=== PATIENT | male | born 1990 | race Hispanic/Latino ===

== ENCOUNTER 2024-05-26 17:06 | Emergency (ER) | payer BC ==
[2024-05-26] VITALS (13 sets, daily range): BP systolic 116–141; BP diastolic 73–111
[~2024-05-26] VITALS: Ht 177.8 cm; Wt 110.0 kg
[2024-05-26 17:43] LABS: BASO% 0.7 % (0-3); HEMATOCRIT 40.9 % (39.0-50.0); HEMOGLOBIN 13.6 g/dl (14.0-18.0); LYMPH% 27.4 % (15-41); MEAN CELL VOLUME 91.7 fL CALC (80.0-100.0); MEAN CORPUSCULAR HGB 30.5 pG CALC (26.0-32.0); MEAN CORPUSCULAR HGB CONC 33.3 g/dL CAL (32.0-36.0); NEUT# 4.34 thou/uL (1.82-7.42); NEUT% 58.9 % (42-76); RED BLOOD COUNT 4.46 mill/uL (4.70-6.10); RED CELL DISTRI WIDTH 11.7 % (11.5-15.5)
[2024-05-26 17:50] LABS: ALBUMIN 4.6 g/dL (3.2-5.0); ALKALINE PHOSPHATASE 65 u/l (38-126); ANION GAP 12 (6-22 (CALC)); BILIRUBIN, TOTAL 0.5 mg/dL (0.2-1.3); BUN 22 mg/dL (9-20); BUN/CREATININE RATIO 20 (12-20 (CALC)); CARBON DIOXIDE 26 mmol/l (22-30); CHLORIDE 104 mmol/l (95-108); CREATININE 1.1 mg/dL (0.7-1.3); ESTIMATED GFR 91 ML/MIN (>=90 (CALC)); LIPASE 41 u/l (23-300); POTASSIUM 4.2 mmol/l (3.5-5.1); SGOT/AST 39 u/l (17-59); SODIUM 138 mmol/l (137-146); TOTAL PROTEIN 7.6 g/dL (6.3-8.2)
[2024-05-26 17:54] LABS: MAGNESIUM 1.9 mg/dL (1.6-2.3)
[2024-05-26] MEDS ORDERED: METHOCARBAMOL500 MG PO (20:09)
== END 2024-05-26 21:15 | disposition home or self-care (01) | DRG 313 ==
LOC: ED 17:06
PROVIDERS: Nurse Practitioner
DX: R07.9 Chest pain, unspecified (principal)